=== PATIENT | male | born 1995 | race Caucasian/White ===

== ENCOUNTER 2016-11-05 23:24 | Inpatient (IN) | payer MEDICAID ==
[~2016-11-05] VITALS: Ht 167.6 cm; Wt 63.5 kg
[2016-11-05] MEDS ORDERED: IV NORMAL SALINE 1000 ML BAG IV ONE (23:30)
[2016-11-05 23:56] LABS: BASOPHILS # (AUTO) 0.1 K/uL (0.0-8.0); BASOPHILS % (AUTO) 1.2 % (0.0-2.0); EOSINOPHILS # (AUTO) 0.1 K/uL (0.0-0.7); EOSINOPHILS % (AUTO) 1.7 % (0.0-7.0); HEMATOCRIT 46.7 % (40-50); LYMPHOCYTES # (AUTO) 2.1 K/UL (0.8-4.8); LYMPHOCYTES % (AUTO) 26.4 % (20.5-51.5); MEAN CORPUSCULAR HEMOGLOBIN 26.5 UUG (27.0-31.0); MEAN CORPUSCULAR HGB CONC 32 g/dL (32.0-37.0); MEAN CORPUSCULAR VOLUME 82.6 FL (82.0-92.0); MONOCYTES # (AUTO) 0.7 K/UL (0.1-1.30); MONOCYTES % (AUTO) 9.2 % (0.0-11.0); NEUTROPHILS # (AUTO) 4.8 K/UL (1.8-8.9); NEUTROPHILS % (AUTO) 61.5 % (38.5-71.5); PLATELET COUNT (AUTO) 283 K/UL (150-450); RED BLOOD CELL COUNT(AUTO) 5.65 MIL/UL (4.7-6.1); WHITE BLOOD COUNT (AUTO) 7.8 K/UL (4.0-11.2)
[2016-11-05] MEDS ORDERED: XANAX (23:56)
--- NOTE | 2016-11-06 00:01 | NUR ---
Pt biba for possible sz activity. No obvious signs of trauma noted. Upon initial arrival pt opens his eyes to verbal stimuli but remained non-verbal. Pt seen by MD. Labs drawn and sent. Fluid bolus infusing freely to gravity. EKG obtained. At this time of assesment pt drowsy but woke up with verbal stimuli. Pt alert and oriented x 4. No neuro deficits noted. Pt falls back to sleep quickly. Pt resting in position of comfort for self. Resp even and unlabored. No obvious signs of distress at this time. Sz precautions in place.
[2016-11-06 00:15] LABS: ALANINE AMINOTRANSFERASE 25 U/L (16-63); ALKALINE PHOSPHATASE 69 U/L (50-136); ASPARTATE AMINOTRANSFERASE 30 U/L (15-37); BILIRUBIN,DIRECT 0.1 mg/dL (0.0-0.2); BILIRUBIN,TOTAL 0.4 mg/dL (0.2-1.0); CARBON DIOXIDE 26 mmol/L (21-32); CHLORIDE 101 mmol/L (98-107); CREATININE 1.3 mg/dL (0.6-1.3); GLUCOSE 133 mg/dL (74-106); TOTAL PROTEIN, SERUM 7.6 g/dL (6.4-8.2); UREA NITROGEN, BLOOD 12 mg/dL (7-18)
[2016-11-06 00:21] LABS: ETHANOL < 3 MG/DL (0-0); THYROID STIMULATING HORMONE 0.427 mIU/mL (0.358-3.740)
[2016-11-06 00:22] LABS: ACETAMINOPHEN < 2.0 ug/mL (10-30)
[2016-11-06 00:42] LABS: *BILIRUBIN,URIN NEGATIVE (NEGATIVE); *BLOOD, URINE NEGATIVE (NEGATIVE); *CLARITY,URINE CLEAR (CLEAR); *COLOR,URINE YELLOW (YELLOW); *KETONES,URINE NEGATIVE (NEGATIVE); *PROTEIN,URINE 2+ (NEGATIVE); LEUKOCYTE ESTERASE ,URINE NEGATIVE (NEGATIVE); NITRITE, URINE NEGATIVE (NEGATIVE); PH,URINE 6.5 (5.0-8.0); UGLUCOSE NEGATIVE (NEGATIVE)
[2016-11-06 00:49] LABS: *AMPHETAMINE, URINE POSITIVE (NEGATIVE); *BARBITURATE, URINE NEGATIVE (NEGATIVE); *CANNABINOID, URINE POSITIVE (NEGATIVE); *COCCAINE, URINE NEGATIVE (NEGATIVE); *OPIATE, URINE NEGATIVE (NEGATIVE); *PHENCYCLIDINE SCREEN,URINE NEGATIVE (NEGATIVE); BACTERIA,URINE FEW /HPF (NONE SEEN); MUCUS,URINE FEW /LPF (0-FEW); RBC,URINE 0-3 /HPF (0-3); SQUAMOUS EPITHELIAL CELL,UR FEW /HPF (NONE SEEN); WBC,URINE 0-3 /HPF (0-3)
--- NOTE | 2016-11-06 01:50 | NUR ---
Pt to and from CT via [place]. Pt resting in position of comfort for self. Resp even and unlabored. no obvious signs of distress at this time
[2016-11-06] MEDS ORDERED: LEVETIRACETAM IV 500 MG in IV DEXTROSE 5% 100 ML IV ONE (02:30)
--- NOTE | 2016-11-06 02:34 | NUR ---
Pt to be admitted. Spoke with Dr. Shipley's answering service and informed to admit to [facility]. call center agent MD for [facility] paged at this time.
[2016-11-06] MEDS ORDERED: LEVETIRACETAM 500 MG/5 ML VIAL IV ONE (02:54)
[2016-11-06] MEDS ORDERED: ONDANSETRON 4 MG/2 ML VIAL IV PRN (03:30)
[2016-11-06] MEDS ORDERED: MAGNESIUM HYDROXIDE 30 ML LIQUID UDC PO PRN (03:30)
[2016-11-06] MEDS ORDERED: LORAZEPAM 2 MG/1 ML VIAL IV PRN (03:30)
[2016-11-06] MEDS ORDERED: Z GUARD REMEDY PASTE 57 GM TUBE TOP PRN (03:30)
[2016-11-06] MEDS ORDERED: ACETAMINOPHEN 325 MG TABLET PO PRN (03:30)
[2016-11-06 04:00] VITALS: BP 113/74
--- NOTE | 2016-11-06 04:00 | NUR ---
Pt resting in position of comfort for self. Resp even and unlabored. No obvious signs of distress at this time.
--- NOTE | 2016-11-06 04:30 | NUR ---
RECEIVED PATIENT VIA GURNEY FROM ER. PATIENT IS A/O X4. DENIES PAIN UPON ARRIVAL. NO RESP. DISTRESS NOTED. VSS. H/L INTACT AND PATENT. PLACED ON TELE ORDERED, SB 50'S. ORIENTED PATIENT TO ROOM AND CALL LIGHT. BED ALARM ON FOR SAFETY. CALL LIGHT IN REACH. ALL NEEDS ATTENDED.
--- NOTE | 2016-11-06 06:19 | NUR ---
PATIENT ASLEEP IN BED. ON TELE SB 50'S. NO RESP. DISTRESS NOTED. VSS. CALL LIGHT IN REACH. BED ALARM ON FOR SAFETY. CALL LIGHT IN REACH. ALL NEEDS ATTENDED. WILL CONTINUE TO MONITOR.
--- NOTE | 2016-11-06 08:14 | NUR ---
Asleep, not in distress. Side rails padded. Bed alarm on
[2016-11-06] MEDS ORDERED: LEVETIRACETAM 500 MG TABLET PO SCH (09:45)
--- NOTE | 2016-11-06 10:00 | NUR ---
Woke up, breakfast served, medications given
[2016-11-06] MEDS: PANTOPRAZOLE SODIUM 40 MG TABLET.DR PO SCH (10:32)
--- NOTE | 2016-11-06 11:00 | NUR ---
Dr. Urrutia for neuro consult seen and examined patient. For EEG
[2016-11-06 11:49] VITALS: BP 106/63
--- NOTE | 2016-11-06 13:00 | NUR ---
Sister at bedside, supportive.
[2016-11-06 15:58] VITALS: BP 123/61
--- NOTE | 2016-11-06 18:40 | NUR ---
Not in distress, no seizure noted. Tele SR.
[2016-11-06 19:00] VITALS: BP 112/69
--- NOTE | 2016-11-06 20:00 | NUR ---
RECEIVED PATIENT AWAKE IN BED. A/O X4. DENIES PAIN OR DISCOMFORT. NO RESP. DISTRESS NOTED. NO SEIZURE NOTED. VSS. H/L INTACT AND PATENT, NOTED TO RIGHT FA #18 GAUGE. CALL LIGHT IN REACH. ALL NEEDS ATTENDED. WILL CONTINUE TO MONITOR.
[2016-11-06] MEDS: HYDROCODONE/APAP 5-325MG TABLET PO PRN (21:29)
--- NOTE | 2016-11-06 21:30 | NUR ---
PATIENT AWAKE IN BED. C/O BACK IN BACK. PATIENT GIVEN NORCO 1 TAB PO PRN FOR PAIN. WILL CONTINUE TO MONITOR.
[2016-11-07] VITALS: BP 103/54
[2016-11-07 04:00] VITALS: BP 96/56
--- NOTE | 2016-11-07 06:00 | NUR ---
PATIENT ASLEEP IN BED. EASILY AROUSABLE. ON TELE SB 50'S. REPORTED PER [employer] MACHINE ADJUSTER THAT PATIENT DROPS IN THE LOW 40'S WHILE ASLEEP, NON-SUSTAINED. ALL OTHER VSS. CALL LIGHT IN REACH. ALL NEEDS ATTENDED. WILL CONTINUE TO MONITOR.
[2016-11-07] MEDS: PANTOPRAZOLE SODIUM 40 MG TABLET.DR PO SCH (06:47)
--- NOTE | 2016-11-07 07:00 | NUR ---
PT IS SLEEPING IN BED COMFORTABLY. NO PAIN NOTED. NO S/S OF RESPIRATORY DISTRESS NOTED. IV INTACT/PATENT. ALL SAFETY NEEDS ARE MET.
[2016-11-07 07:35] LABS: BASOPHILS % (AUTO) 0.8 % (0.0-2.0); EOSINOPHILS # (AUTO) 0.1 K/uL (0.0-0.7); EOSINOPHILS % (AUTO) 2.4 % (0.0-7.0); HEMOGLOBIN 13.5 G/DL (14.0-18.0); LYMPHOCYTES # (AUTO) 2.6 K/UL (0.8-4.8); LYMPHOCYTES % (AUTO) 42.2 % (20.5-51.5); MEAN CORPUSCULAR HEMOGLOBIN 27.4 UUG (27.0-31.0); MEAN CORPUSCULAR HGB CONC 33 g/dL (32.0-37.0); MEAN CORPUSCULAR VOLUME 82.3 FL (82.0-92.0); MONOCYTES # (AUTO) 0.6 K/UL (0.1-1.30); MONOCYTES % (AUTO) 9.8 % (0.0-11.0); NEUTROPHILS # (AUTO) 2.8 K/UL (1.8-8.9); NEUTROPHILS % (AUTO) 44.8 % (38.5-71.5); PLATELET COUNT (AUTO) 240 K/UL (150-450); WHITE BLOOD COUNT (AUTO) 6.1 K/UL (4.0-11.2)
[2016-11-07 07:42] LABS: RED BLOOD CELL COUNT(AUTO) 4.94 MIL/UL (4.7-6.1)
[2016-11-07 07:43] LABS: HEMATOCRIT 40.7 % (40-50)
[2016-11-07 07:54] LABS: CREATININE 1.1 mg/dL (0.6-1.3); MAGNESIUM 1.8 mg/dL (1.8-2.4); PHOSPHOROUS 4.6 mg/dL (2.5-4.9)
[2016-11-07 11:48] VITALS: BP 105/73
[2016-11-07 16:31] VITALS: BP 113/72
--- NOTE | 2016-11-07 19:29 | NUR ---
NO CHANGES NOTED. ALL SAFETY NEEDS ARE MET. NO SEIZURE NOTED
[2016-11-07] MEDS: HYDROCODONE/APAP 5-325MG TABLET PO PRN (19:47)
[2016-11-07 20:14] VITALS: BP 110/69
--- NOTE | 2016-11-07 20:17 | NUR ---
PATIENT RECEIVED SITTING UP IN BED, NO ACUTE DISTRESS NOTED. AOX4. LUNGS CLEAR THROUGH OUT WITH AUSCULTATION. NO SEIZURE ACTIVITY NOTED. HEP LOCK IN RIGHT ARM, INTACT. BED IN LOW AND LOCKED POSITION, CALL LIGHT WITHIN REACH.
--- NOTE | 2016-11-08 01:06 | NUR ---
Patient in bed observed sleeping at this time. No seizure activity noted. Will continue to monitor for safety.
[2016-11-08] MEDS: PANTOPRAZOLE SODIUM 40 MG TABLET.DR PO SCH (06:36)
[2016-11-08 06:43] VITALS: BP 115/54
--- NOTE | 2016-11-08 13:15 | NUR ---
EEG read by DR PEACE and state ok for pt to go home. No new prescription given. Pt has no episode of seizures. Discharge instructions given to pt - pt verbalized understanding. IV D/C. Instructed pt to fu with PMD and gave DR PEACE neurologist information if family decides to go with her. Pt s valuables given to pt. Pt to fu with vaccines with his PMD as well. Pt is in no acute distress upon discharge.
== END 2016-11-08 13:15 | disposition home or self-care (01) | DRG 53 ==
LOC: ER 23:30 → TELE 11-06 03:00 → MED 11-07 12:35
PROVIDERS: ADMIT Internal Medicine; ATTEND Nurse Practitioner Acute Care
DX: G40.409 Other generalized epilepsy and epileptic syndromes, not intractable, without status epilepticus (principal); G92 Toxic encephalopathy; Z87.820 Personal history of traumatic brain injury; F41.9 Anxiety disorder, unspecified; F10.10 Alcohol abuse, uncomplicated; F32.9 Major depressive disorder, single episode, unspecified; F17.200 Nicotine dependence, unspecified, uncomplicated; Y90.9 Presence of alcohol in blood, level not specified; F13.239 Sedative, hypnotic or anxiolytic dependence with withdrawal, unspecified; F12.90 Cannabis use, unspecified, uncomplicated
CPT/HCPCS: 36415; 70450; 71010; 80307; 83735; 84100; 84443; 85025; 85730; 93005; A4663; G0480; G0480-TC; J1953; J2405

== ENCOUNTER 2016-11-12 10:45 | Emergency (ER) | payer MEDICAID ==
[~2016-11-12] VITALS: Ht 170.2 cm; Wt 70.3 kg
[~2016-11-12 10:45] MED LIST: XANAX
== END 2016-11-12 10:58 | disposition left against medical advice (07) ==
LOC: ER 10:45
DX: R51 Headache (principal); Z53.21 Procedure and treatment not carried out due to patient leaving prior to being seen by health care provider
CPT/HCPCS: A4663

== ENCOUNTER 2021-03-04 21:31 | Emergency (ER) | payer MEDICAID ==
[~2021-03-04] VITALS: Ht 172.7 cm; Wt 81.6 kg
--- NOTE | 2021-03-04 22:00 | NUR ---
PATIENT WAS MSE BY DR MORGAN IN ROOM 03A.
[2021-03-04] MEDS ORDERED: LORAZEPAM 0.5 MG TABLET PO ONE (22:15)
[2021-03-04 22:30] LABS: MEAN CORPUSCULAR VOLUME 83.7 fL (73.0-96.2); PLATELET COUNT (AUTO) 304 K/uL (152-348)
[2021-03-04] MEDS ORDERED: LORAZEPAM 0.5 MG TABLET ONE (22:34)
[2021-03-04 22:35] LABS: CARBON DIOXIDE 25 mmol/L (21-32); CHLORIDE 102 mmol/L (98-107); GLUCOSE 99 mg/dL (74-106); UREA NITROGEN, BLOOD 20 mg/dL (7-18)
[2021-03-04 22:42] LABS: ETHANOL < 3 MG/DL (0-0)
[2021-03-04 23:06] LABS: MAGNESIUM 1.9 mg/dL (1.8-2.4)
[2021-03-04] MEDS ORDERED: CYANOCOBALAMIN 1000 MCG/ML VIAL IM ONE (23:30)
[2021-03-04] MEDS ORDERED: MECO10006 IM (23:39)
[2021-03-04] MEDS ORDERED: CHLO10CA6 PO (23:39)
[2021-03-04] MEDS ORDERED: CYANOCOBALAMIN 1000 MCG/ML VIAL ONE (23:42)
--- NOTE | 2021-03-04 23:50 | NUR ---
DR MORGAN AT BEDSIDE MADE PATIENT AWARE OF TEST RESULTS WILL BE DC HOME.
--- NOTE | 2021-03-05 00:01 | NUR ---
Patient discharged to home in stable condition. Written and verbal after care instructions given. Patient verbalizes understanding of instructions. Stressed follow up or return to ER for worsening s/s.
[2021-03-05 00:02] VITALS: BP 137/88
[2021-03-05 00:11] LABS: *AMPHETAMINE, URINE NEGATIVE (NEGATIVE); *CANNABINOID, URINE POSITIVE (NEGATIVE); *COCCAINE, URINE NEGATIVE (NEGATIVE); *OPIATE, URINE POSITIVE (NEGATIVE); *PHENCYCLIDINE SCREEN,URINE NEGATIVE (NEGATIVE)
== END 2021-03-05 00:04 | disposition home or self-care (01) ==
LOC: ER 21:32
DX: R55 Syncope and collapse (principal); F13.239 Sedative, hypnotic or anxiolytic dependence with withdrawal, unspecified; E53.8 Deficiency of other specified B group vitamins; I10 Essential (primary) hypertension; F41.9 Anxiety disorder, unspecified; Z87.820 Personal history of traumatic brain injury
CPT/HCPCS: 36415; 80048; 80307; 80320; 82607; 83735; 85025; 93005; 96372; 99284; J3420; A4663; G0480